=== PATIENT | female | born 1960 | race Caucasian/White ===

== ENCOUNTER → 2017-06-13 09:27 | Outpatient (CLI) | payer BC, SELFPAY ==
[2017-06-13 09:34] LABS: Bacteria 0 SEEN /hpf (None Seen); Mucous, Urine 0 SEEN /hpf (<or=2+); Squamous Epithelial Cells - UA 0 SEEN /hpf (5-10); White Blood Cells 0 SEEN /hpf (0-5)
[2017-06-13 11:42] LABS: AST(SGOT) 16 U/L (15-37); Alanine Aminotransfer ALT/SGPT 27 U/L (13-56); Albumin, Serum 3.6 g/dL (3.2-5.0); Alkaline Phosphatase 110 U/L (45-117); Anion Gap 7 (5-15); BUN 21 mg/dL (7-18); BUN/Creat Ratio 29.6 RATIO (10-20); Calcium,Total 9.4 mg/dL (8.5-10.1); Chloride 101 mmol/L (98-107); Cholesterol 285 mg/dL (200); Creatinine, Serum 0.71 mg/dL (0.55-1.02); EST Glomerular Filtration Rate 90 mL/min (>60); Est Glom Filt Rate - Afr Amer 109 mL/min (>60); Globulin 3.6 g/dL (2.2-4.2); Glucose 321 mg/dL (74-106); High Density Lipoprotein 72 mg/dL; Potassium 4.2 mmol/L (3.5-5.1); Protein, Total 7.2 g/dL (6.4-8.2); Sodium Level 135 mmol/L (136-145); Triglycerides 143 mg/dL; Very Low Density Lipoprotein 29 mg/dL (5-40)
[2017-06-13 11:48] LABS: Hemoglobin A1c 9.1 % (4.2-6.3)
[2017-06-13 12:22] LABS: Color, Urine Yellow (Yellow); Glucose, Dipstick 1000 mg/dl (Normal); Ketone-Dipstick 50 mg/dl (Negative); Leukocyte Esterase-Dipstick Negative /ul (Negative); Nitrite-Dipstick Negative (Negative); Occult Blood-Urine 250 /ul (Negative); Protein-Dipstick 15 mg/dl (Negative); Specific Gravity, Urine 1.015 (1.002-1.030); Urine Bilirubin Dipstick Negative (Negative); Urine Clarity Cloudy (Clear); Urine Urobilinogen Normal (Normal)
[2017-06-13 12:38] LABS: Red Blood Cells-Urine > 100 SEEN /hpf (0-5)
== END ==
PROVIDERS: Family Provider Family Medicine; PCP Family Medicine; Visit Provider Nurse Practitioner
DX: E10.65 Type 1 diabetes mellitus with hyperglycemia (principal); R31.9 Hematuria, unspecified
CPT/HCPCS: 36415; 80053; 80061; 81001; 83036

== ENCOUNTER → 2017-09-14 09:16 | Outpatient (CLI) | payer BC, SELFPAY ==
[2017-09-14 11:04] LABS: Hemoglobin A1c 9.1 % (4.2-6.3)
[2017-09-14 11:41] LABS: BUN 20 mg/dL (7-18); Creatinine, Serum 0.71 mg/dL (0.55-1.02); EST Glomerular Filtration Rate 90 mL/min (>60); Glucose 312 mg/dL (74-106)
[2017-09-14 11:42] LABS: AST(SGOT) 12 U/L (15-37); Alanine Aminotransfer ALT/SGPT 24 U/L (13-56); Albumin, Serum 3.5 g/dL (3.2-5.0); Alkaline Phosphatase 97 U/L (45-117); Anion Gap 8 (5-15); BUN/Creat Ratio 28.1 RATIO (10-20); Calcium,Total 8.8 mg/dL (8.5-10.1); Chloride 103 mmol/L (98-107); Cholesterol 298 mg/dL (200); Est Glom Filt Rate - Afr Amer 109 mL/min (>60); Globulin 3.4 g/dL (2.2-4.2); High Density Lipoprotein 58 mg/dL; Potassium 4.5 mmol/L (3.5-5.1); Protein, Total 6.9 g/dL (6.4-8.2); Sodium Level 139 mmol/L (136-145); Triglycerides 175 mg/dL; Very Low Density Lipoprotein 35 mg/dL (5-40)
== END ==
PROVIDERS: Family Provider Family Medicine; PCP Family Medicine; Visit Provider Nurse Practitioner
DX: E10.65 Type 1 diabetes mellitus with hyperglycemia (principal)
CPT/HCPCS: 36415; 80053; 80061; 83036

== ENCOUNTER → 2017-12-19 07:21 | Outpatient (CLI) | payer BC, SELFPAY ==
[2017-12-19 08:41] LABS: Microalbumin,Random Urine 13.1 mg/L (NO RANGE EST.)
[2017-12-19 08:45] LABS: Hemoglobin A1c 9.5 % (4.2-6.3)
[2017-12-19 09:17] LABS: ALB/GLOB Ratio 1.1 RATIO (0.9-2.4); AST(SGOT) 16 U/L (15-37); Alanine Aminotransfer ALT/SGPT 25 U/L (13-56); Albumin, Serum 3.5 g/dL (3.2-5.0); Alkaline Phosphatase 103 U/L (45-117); Anion Gap 9 (5-15); BUN 22 mg/dL (7-18); BUN/Creat Ratio 30.5 RATIO (10-20); Calcium,Total 8.9 mg/dL (8.5-10.1); Chloride 105 mmol/L (98-107); Creatinine, Serum 0.72 mg/dL (0.55-1.02); EST Glomerular Filtration Rate 88 mL/min (>60); Est Glom Filt Rate - Afr Amer 107 mL/min (>60); Globulin 3.3 g/dL (2.2-4.2); Glucose 308 mg/dL (74-106); Potassium 4.1 mmol/L (3.5-5.1); Protein, Total 6.8 g/dL (6.4-8.2); Sodium Level 138 mmol/L (136-145)
== END ==
PROVIDERS: Family Provider Family Medicine; PCP Family Medicine; Visit Provider Nurse Practitioner
DX: E11.9 Type 2 diabetes mellitus without complications (principal)
CPT/HCPCS: 36415; 80053; 82043; 82570; 83036; 87086

== ENCOUNTER → 2018-03-20 07:30 | Outpatient (CLI) | payer BC, SELFPAY ==
[2018-01-30 14:05] VITALS: BMI 31.4
[2018-03-20 08:43] LABS: Microalbumin,Random Urine 25.5 mg/L (NO RANGE EST.); Microalbumin:Creatinine Ratio 36.2 mg/g CRE (<30 mg/g CRE)
[2018-03-20 08:45] LABS: Hemoglobin A1c 9.6 % (4.2-6.3)
[2018-03-20 09:03] LABS: Vitamin D,25 Hydroxy 17.2 ng/mL (29.95-100.01)
[2018-03-20 09:11] LABS: ALB/GLOB Ratio 1.1 RATIO (0.9-2.4); AST(SGOT) 12 U/L (15-37); Alanine Aminotransfer ALT/SGPT 24 U/L (13-56); Albumin, Serum 3.7 g/dL (3.2-5.0); Alkaline Phosphatase 97 U/L (45-117); Anion Gap 7 (5-15); BUN 21 mg/dL (7-18); BUN/Creat Ratio 31.9 RATIO (10-20); Chloride 105 mmol/L (98-107); Cholesterol 277 mg/dL (200); Creatinine, Serum 0.66 mg/dL (0.55-1.02); EST Glomerular Filtration Rate 98 mL/min (>60); Est Glom Filt Rate - Afr Amer 119 mL/min (>60); Globulin 3.5 g/dL (2.2-4.2); Glucose 257 mg/dL (74-106); High Density Lipoprotein 65 mg/dL; Potassium 4.2 mmol/L (3.5-5.1); Protein, Total 7.2 g/dL (6.4-8.2); Sodium Level 138 mmol/L (136-145); Thyroid Stim Hormone (TSH) 2.88 uIU/mL (0.358-3.74); Triglycerides 166 mg/dL; Very Low Density Lipoprotein 33 mg/dL (5-40)
== END ==
PROVIDERS: Family Provider Family Medicine; PCP Family Medicine; Referring Provider Nurse Practitioner; Visit Provider Nurse Practitioner
DX: E10.65 Type 1 diabetes mellitus with hyperglycemia (principal)
CPT/HCPCS: 36415; 80053; 80061; 82043; 82306; 82570; 83036; 84443

== ENCOUNTER → 2018-06-14 08:52 | Outpatient (CLI) | payer BC, SELFPAY ==
[2018-03-27 08:45] VITALS: BMI 31.9
[2018-06-14 10:20] LABS: Hemoglobin A1c 7.2 % (4.2-6.3)
[2018-06-14 10:32] LABS: Microalbumin,Random Urine 24.3 mg/L (NO RANGE EST.); Microalbumin:Creatinine Ratio 47.2 mg/g CRE (<30 mg/g CRE)
[2018-06-14 10:41] LABS: ALB/GLOB Ratio 1.1 RATIO (0.9-2.4); AST(SGOT) 16 U/L (15-37); Alanine Aminotransfer ALT/SGPT 27 U/L (13-56); Albumin, Serum 3.7 g/dL (3.2-5.0); Alkaline Phosphatase 93 U/L (45-117); Anion Gap 6 (5-15); BUN 22 mg/dL (7-18); BUN/Creat Ratio 28.1 RATIO (10-20); Chloride 108 mmol/L (98-107); Creatinine, Serum 0.78 mg/dL (0.55-1.02); EST Glomerular Filtration Rate 80 mL/min (>60); Est Glom Filt Rate - Afr Amer 97 mL/min (>60); Globulin 3.5 g/dL (2.2-4.2); Glucose 225 mg/dL (74-106); Potassium 4.2 mmol/L (3.5-5.1); Protein, Total 7.2 g/dL (6.4-8.2); Sodium Level 142 mmol/L (136-145)
[2018-06-16 09:12] LABS: Vitamin D,25 Hydroxy 29.2 ng/mL (29.95-100.01)
== END ==
PROVIDERS: Family Provider Family Medicine; PCP Family Medicine; Referring Provider Nurse Practitioner; Visit Provider Nurse Practitioner
DX: E10.65 Type 1 diabetes mellitus with hyperglycemia (principal); E55.9 Vitamin D deficiency, unspecified; E78.2 Mixed hyperlipidemia
CPT/HCPCS: 36415; 80053; 82043; 82306; 82570; 83036

== ENCOUNTER → 2018-10-03 | Outpatient (CLI) | payer BC, SELFPAY ==
[2018-06-17 08:17] VITALS: BMI 34.3
[2018-10-03 10:46] LABS: Microalbumin,Random Urine 41.3 mg/L (NO RANGE EST.); Microalbumin:Creatinine Ratio 28.1 mg/g CRE (<30 mg/g CRE)
[2018-10-03 11:04] LABS: Vitamin D,25 Hydroxy 28.3 ng/mL (29.95-100.01)
== END | disposition home or self-care (01) ==
LOC: LAB 09:17
PROVIDERS: Family Provider Family Medicine; PCP Family Medicine; Referring Provider Nurse Practitioner; Visit Provider Nurse Practitioner
DX: E10.65 Type 1 diabetes mellitus with hyperglycemia (principal); E55.9 Vitamin D deficiency, unspecified
CPT/HCPCS: 36415; 82043; 82306; 82570

== ENCOUNTER 2020-09-11 19:29 | Emergency (ER) | payer OTHER, SELFPAY ==
[2020-06-29 09:11] VITALS: BMI 36.2
[2020-09-11 19:30] VITALS: BP 163/73; PULSE 86; RESP 16; TEMP 36.4; O2SAT 98; BMI 39.2
--- NOTE | 2020-09-11 19:43 | CT_ITS ---
STUDY: CT ABDOMEN AND PELVIS WITHOUT CONTRAST REASON FOR EXAM: Female, 60 years old. Abdominal pain kidney stone evaluation RADIATION DOSAGE (If Supplied By Facility): CTDIvol = ( 19.13 ) mGy, DLP = ( 927.09 ) mGycm TECHNIQUE: Transaxial images were obtained from the dome of the diaphragm to the symphysis pubis without oral contrast, and without intravenous contrast. Sagittal and coronal images were reconstructed. Individualized dose optimization techniques were used for this CT. COMPARISON: None. FINDINGS: The visualized lung bases are unremarkable. Coronary arteries are diseased.. Normal liver. Normal gallbladder and extrahepatic biliary system. Normal spleen. There is somewhat unusual appearance of the distal pancreatic body with posterior and medial protrusion, likely unusual angulation. There is no associated inflammation. Pancreatic duct is not dilated. Normal bilateral adrenal glands. There are bilateral 2 mm distal ureteral stones, within 1 cm of the ureterovesical junction without hydronephrosis. There are small bilateral 1 -- 2 mm calyceal nonobstructing calculi. There is a left exophytic 2.7 cm lesion with peripheral rim calcification, incompletely characterized. Perirenal space is normal. Normal visualized stomach. Normal small intestine. Normal colon. The appendix is visualized and appears normal. Normal abdominal aorta. Normal inferior vena cava. Normal retroperitoneum. Normal urinary bladder. Uterus is removed. Normal abdominal wall. There is bilateral lower abdominal cutaneous inflammation, likely due to subcutaneous therapeutic injections. Normal osseous structures. CT/Abdomen/Pelvis without Cont IMPRESSION: 1. Bilateral 2 mm distal ureteral calculi without hydronephrosis. 2. Left renal lesion, incompletely characterized, refer to more definitive renal imaging. 3. Unusual appearance of the pancreas, probably artifactual. This can be evaluated at the time of the above recommended renal imaging such as CT or MR. Electronically Signed: Kimberly Ha MD at 20:56 EDT Tel , Service support ,
[2020-09-11 19:53] LABS: Absolute Lymphocyte Count 2.84 X10^3/uL (0.83-4.51); Absolute Neutrophil Count 8.2 X10^3/uL (2.0-7.7); Basophil# 0.11 X10^3/uL; Basophil% 0.9 % (0-1); Eosinophil# 0.23 X10^3/uL; Eosinophils% 1.8 % (0-5); Hematocrit 48.5 % (37-47); Hemoglobin 16.3 g/dL (12.0-15.0); Lymphocyte # 2.84 X10^3/ul (0.83-4.51); Lymphocyte % 22.3 % (19-41); Mean Corp Hgb Conc 33.6 g/dL (32-36); Mean Corpuscular Hgb 30.5 pg (27.0-32.0); Mean Corpuscular Volume 90.8 fL (81-99); Mean Platelet Vol. 10.3 fl (6.2-12.0); Monocyte% 10.2 % (0-10); NRBC Flagged by Analyzer 0 % (0-5); Neutrophil # 8.19 X10^3/uL (2.7-7.7); Neutrophil % 64.5 % (47-70); Platelet Count 255 K/mm3 (150-450); RBC Distribution Width CV 13.3 % (11.6-14.6); RBC Distribution Width SD 44.8 fl (35.1-43.9); Red Blood Count 5.34 M/mm3 (4.2-5.4); White Blood Count 12.7 K/mm3 (4.4-11.0)
[2020-09-11] MEDS: Ondansetron 4 MG/2 ML Vial IV (19:54)
[2020-09-11] MEDS: Ketorolac 15 MG/ML Vial IV (19:54)
[2020-09-11 20:05] LABS: Bacteria 0 SEEN /hpf (None Seen); Color, Urine Straw (Yellow); Glucose, Dipstick 250 mg/dl (Normal); Ketone-Dipstick 5 mg/dl (Negative); Leukocyte Esterase-Dipstick 25 /ul (Negative); Mucous, Urine 0 SEEN /hpf (<or=2+); Nitrite-Dipstick Negative (Negative); Occult Blood-Urine 25 /ul (Negative); Protein-Dipstick 15 mg/dl (Negative); Red Blood Cells-Urine 0 SEEN /hpf (0-5); Urine Bilirubin Dipstick Negative (Negative); Urine Clarity Clear (Clear); Urine Urobilinogen Normal (Normal)
[2020-09-11 20:07] LABS: Anion Gap 7 (5-15); BUN 20 mg/dL (7-18); BUN/Creat Ratio 25.2 RATIO (10-20); Calcium,Total 10.4 mg/dL (8.5-10.1); Chloride 104 mmol/L (98-107); EST Glomerular Filtration Rate 78 mL/min (>60); Est Glom Filt Rate - Afr Amer 95 mL/min (>60); Estimated Creatinine Clearance 61.86 ml/min; Glucose 172 mg/dL (74-106); Potassium 3.9 mmol/L (3.5-5.1); Sodium Level 138 mmol/L (136-145)
[2020-09-11 20:15] LABS: Squamous Epithelial Cells - UA 0-5 SEEN /hpf (5-10); White Blood Cells 0-5 SEEN /hpf (0-5)
--- NOTE | 2020-09-11 20:32 | EDS_ITS ---
HPI HPI - GI History of Present Illness Chief Complaint: Flank Pain Narrative Narrative: Patient presenting for evaluation due to concern for flank pain and a kidney stone. Patient states that she does have a history of kidney stones in the past. The current pain that she is having seems characteristic with that. Patient states that she has been dealing with urinary tract infections recently, she was started on a course of Bactrim earlier this week. She stated that on Saturday she developed left-sided flank pain that was waxing and waning and consistent with a kidney stone. Patient states that she has been having some urinary hesitancy today. She is also been having some nausea with difficulty keeping down fluids. She has had a minimal amount of vomiting. No fevers associated with this. Patient does state that when she had this in the distant past it did require lithotripsy but that was more so because she is not able to tolerate oral pain medications. Review of systems otherwise negative. [facility] Medical History (Updated 09/11/20 @ 21:[address] Blu Johnson MD) Diabetes type 1, controlled H/O urinary tract infection H/O: pneumonia HTN (hypertension) Hx of nephrolithotomy with removal of calculi Hyperlipidemia Kidney stones manual manipulation of R shoulder Obesity Osteopenia Vision problems Home Medications blood-glucose meter #1 ea 03/05/17 [History Last Taken Unknown] lancets 33 gauge #100 ea 03/05/17 [History Last Taken Unknown] multivitamin 1 tab PO QAM 03/05/17 [History Last Taken Unknown] flash glucose scanning reader #1 ea 02/02/18 [Rx Last Taken Unknown] rosuvastatin 10 mg tablet 10 mg PO QHS #30 tab 03/27/18 [Rx Last Taken Unknown] ascorbic acid (vitamin C) 500 mg capsule mg PO cap 06/17/18 [History Last Taken Unknown] alprazolam 0.25 mg tablet 0.25 mg PO DAILY PRN 08/17/19 [History Last Taken Unknown] carvedilol 12.5 mg tablet 12.5 mg PO BID 08/17/19 [History Last Taken Unknown] cholecalciferol (vitamin D3) 125 mcg (5,000 unit) capsule 125 mcg PO DAILY 08/17/19 [History Last Taken Unknown] hydrochlorothiazide 12.5 mg capsule 12.5 mg PO DAILY 08/17/19 [History Last Taken Unknown] naproxen sodium 220 mg capsule 440 mg PO DAILY cap 08/17/19 [History Last Taken Unknown] flash glucose sensor #2 ea 11/19/19 [Rx Last Taken Unknown] pen needle, diabetic 31 gauge x 08/14 #150 ea 11/26/19 [Rx Last Taken Unknown] Lantus U-100 Insulin 100 unit/mL subcutaneous solution See Rx Instructions SC BID #20 ml NS 03/29/20 [Rx Last Taken Unknown] Humalog KwikPen Insulin 100 unit/mL subcutaneous See Rx Instructions SC .COMPLEX #54 ml NS MDD 175 06/29/20 [Rx Last Taken Unknown] carvedilol 6.25 mg tablet 6.25 mg PO BID tablet 06/29/20 [History Last Taken Unknown] blood sugar diagnostic #100 ea 08/03/20 [Rx Last Taken Unknown] ketorolac 10 mg PO TID 5 Days #15 tab 09/11/20 [Rx Last Taken Unknown] tamsulosin [Flomax] 0.4 mg PO DAILY #5 cap 09/11/20 [Rx Last Taken Unknown] Allergy/AdvReac Type Severity Reaction Status Date / Time dulaglutide [From [facility]] Allergy Severe Unknown Verified 09/11/20 19:32 morphine Allergy Hives Verified 09/11/20 19:32 Opioids - Morphine Analogues Allergy Rash Verified 09/11/20 19:32 codeine AdvReac Nausea/Vom/ Verified 09/11/20 19:32 Diarrhea Family History Father Heart disease Alcoholism Grandfather Diabetes Myocardial infarction Heart disease Parkinsons disease Grandmother Parkinsons disease Mother Heart disease blood clots Surgical History History of incision and drainage History of total abdominal hysterectomy Hx of cataract surgery Social History (Updated 06/30/20 @ 10:[address] Yaya Wilson MD) Smoking Status: Current every day smoker tobacco type: cigarettes Tobacco: How many years used: 44 second hand exposure: Yes alcohol intake: never substance use type: does not use ROS ROS ED Constitutional Constitutional ED: Denies chills or fever(s) ENT ENT ED: Denies sore throat Cardiovascular Cardiovascular: Denies chest pain Respiratory/Chest Respiratory/Chest: Denies cough or dyspnea Gastrointestinal Gastrointestinal: Reports nausea and vomiting; Denies abdominal pain, constipation or diarrhea Genitourinary Genitourinary ED: Reports other Details: hesitency Flank pain ; Denies dysuria, hematuria or urinary frequency Musculoskeletal Musculoskeletal: Denies myalgias Integumentary Denies rash Neurologic Neurologic: Denies paresthesias or weakness Psychiatric Psychiatric: Denies depression Endocrine Endocrinology: Denies polyuria Hematologic/Lymphatic Hematologic/Lymphatic: Denies easy bleeding or easy bruising Allergic/Immunologic Allergic/Immunologic ED: Denies urticaria EXAM Physical Exam Const Vital Signs: 09/11/20 19:30 Temperature 97.6 F L Temperature Source Temporal Pulse Rate 86 Respiratory Rate 16 Blood Pressure 163/73 H Blood Pressure Mean 103 Pulse Ox 98 Oxygen Delivery Method Room Air Positive well nourished, well developed and obese General Appearance ED: well developed and NAD Nutritional Appearance: obese HEENT Reports dry mucous membranes normocephalic and atraumatic Mouth ED: Yes dry mucous membranes Mouth: dry mucous membranes Eyes EOMs intact bilaterally General Eye ED: Negative for pale conjunctiva or scleral icterus Neck no lymphadenopathy and supple Resp normal respiratory effort and clear to auscultation bilaterally Cardio regular rate, regular rhythm, no murmurs and peripheral pulses 2+ throughout GI non-distended and no masses Palpation: soft and tender LLQ; Negative for guarding, rigid or rebound tenderness present Back/Spine no CVA tenderness Extremity full ROM General Extremety ED: Negative for edema General Extremity: Negative for edema Neuro moves all extremities and no sensory deficits noted Sensorium / Orientation: alert, oriented to person, oriented to place and oriented to time Motor Exam: strength 5/5 throughout Psych mental status grossly normal Skin Rashes: no rashes MDM MDM MDM Narrative Medical decision making narrative: Patient presented with flank pain and concern for kidney stones. IV was established laboratory studies were obtained. Patient has a modest leukocytosis of 12.7. Chemistry panel is normal, patient has no elevation of her BUN or creatinine has normal electrolytes. Urinalysis demonstrates no evidence of infection, no significant evidence of hematuria. CT abdomen and pelvis was performed on the patient and actually shows bilateral nonobstructing stones at the bilateral UVJ's with no evidence of hydronephrosis and measuring 2 mm. Given the patient's normal renal function I did administer the patient some Toradol and she had significant symptomatic improvement and is resting comfortably. At this time the patient does have bilateral stones but they do not appear to be obstructive as there is no hydronephrosis, she has normal renal function and no evidence of pyuria. Patient has told me that in the past she has had issues with tolerating oral pain medications and requires admission, but there is currently no urology coverage. Given her normal renal function numbers and the fact that she is not infectious and the fact that the stones are nonobstructive I think that she potentially could be initially tried on a outpatient treatment regimen with a protracted course of ketorolac and early follow-up with urology. I educated the patient on signs and symptoms which to return, she voiced understanding of this. Patient was discharged in improved condition. Lab Data Labs: Laboratory Results - last 24 hr 09/11/20 09/11/20 09/11/20 19:45 19:45 19:50 WBC 12.7 H RBC 5.34 Hgb 16.3 H Hct 48.5 H MCV 90.8 MCH 30.5 MCHC 33.6 RDW Std Deviation 44.8 H RDW Coeff of Mark 13.3 Plt Count 255 MPV 10.3 Immature Gran % (Auto) 0.300 Neut % (Auto) 64.5 Lymph % (Auto) 22.3 [place] % (Auto) 10.2 H Eos % (Auto) 1.8 Baso % (Auto) 0.9 Absolute Neuts (auto) 8.2 H Absolute Lymphs (auto) 2.84 Nucleated RBC % 0 Sodium 138 Potassium 3.9 Chloride 104 Carbon Dioxide 27.0 Anion Gap 7 BUN 20 H Creatinine 0.80 Estim Creat Clear Calc 61.86 Est GFR (MDRD) Af Amer 95 Est GFR (MDRD) Non-Af 78 BUN/Creatinine Ratio 25.2 H Glucose 172 H Calcium 10.4 H Urine Color Straw Urine Clarity Clear Urine pH 6.0 Ur Specific [place] 1.020 Urine Protein 15 H Urine Glucose (UA) 250 H Urine Ketones 5 H Urine Occult Blood 25 H Urine Nitrite Negative Urine Bilirubin Negative Urine Urobilinogen Normal Ur Leukocyte Esterase 25 H Urine RBC 0 SEEN Urine WBC 0-5 SEEN Ur Squamous Epith Cells 0-5 SEEN Urine Bacteria 0 SEEN Urine Mucus 0 SEEN Radiography Diagnostic Testing: Radiology Impression Abdomen/Pelvis CT 09/11/20 19:43 IMPRESSION: 1. Bilateral 2 mm distal ureteral calculi without hydronephrosis. 2. Left renal lesion, incompletely characterized, refer to more definitive renal imaging. 3. Unusual appearance of the pancreas, probably artifactual. This can be evaluated at the time of the above recommended renal imaging such as CT or MR. Electronically Signed: Kimberly Ha MD at 20:56 EDT Tel , Service support , Discharge Plan Triage Chief Complaint: Flank Pain ED Provider: Blu Johnson Dx/Rx/DC Orders Clinical Impression: Urolithiasis Instructions: ED Kidney Stone w/ Colic Prescriptions: New ketorolac 10 mg tablet 10 mg PO TID 5 Days Qty: 15 RF: 0 tamsulosin [Flomax] 0.4 mg capsule 0.4 mg PO DAILY Qty: 5 RF: 0 No Action multivitamin tablet 1 tab PO QAM RF: 0 (DME) blood-glucose meter misc See Dose Instructions .ROUTE .MEDSUPPLY Qty: 1 RF: 0 (DME) lancets [OneTouch Delica Lancets] 33 gauge misc See Dose Instructions .ROUTE .MEDSUPPLY Qty: 100 RF: 0 rosuvastatin 10 mg tablet 10 mg PO QHS Qty: 30 RF: 11 (DME) FreeStyle [place] 14 Day [place] misc See Dose Instructions .ROUTE .MEDSUPPLY Qty: 1 RF: 0 ascorbic acid (vitamin C) 500 mg capsule PO RF: 0 carvedilol 12.5 mg tablet 12.5 mg PO BID RF: 0 cholecalciferol (vitamin D3) 125 mcg (5,000 unit) capsule 125 mcg PO DAILY RF: 0 naproxen sodium [Aleve] 220 mg capsule 440 mg PO DAILY RF: 0 alprazolam 0.25 mg tablet 0.25 mg PO DAILY PRNRF: 0 hydrochlorothiazide 12.5 mg capsule 12.5 mg PO DAILY RF: 0 (DME) FreeStyle [place] 14 Day Sensor Kit See Dose Instructions .ROUTE .MEDSUPPLY Qty: 2 RF: 11 carvedilol 6.25 mg tablet 6.25 mg PO BID RF: 0 Humalog KwikPen Insulin 100 unit/mL insulin pen See Rx Instructions SC .COMPLEX MDD 175 Qty: 54 RF: 1 (DME) pen needle, diabetic [BD Ultra-Fine Short Pen Needle] 31 gauge x 5/16 needle See Dose Instructions .ROUTE .MEDSUPPLY Qty: 150 RF: 11 Lantus U-100 Insulin 100 unit/mL solution See Rx Instructions SC BID Qty: 20 RF: 4 (DME) OneTouch Ultra Test Strip See Dose Instructions .ROUTE .MEDSUPPLY Qty: 100 RF: 11 Primary Care Provider: Fredrick Mcintyre Referrals: Lavon Osborne MD [STAFF PHYSICIAN] - As soon as possible Fredrick Mcintyre MD [Primary Care Provider] - Disposition Disposition: Home, self care
[2020-09-11 21:40] VITALS: BP 134/63; PULSE 83; RESP 16; O2SAT 94
== END 2020-09-11 21:40 | disposition home or self-care (01) ==
PROVIDERS: Emergency Provider Emergency Medicine; PCP Family Medicine
DX: N20.1 Calculus of ureter (principal); E10.9 Type 1 diabetes mellitus without complications; I10 Essential (primary) hypertension; E78.5 Hyperlipidemia, unspecified; E66.9 Obesity, unspecified; M85.80 Other specified disorders of bone density and structure, unspecified site; F17.210 Nicotine dependence, cigarettes, uncomplicated; Z79.4 Long term (current) use of insulin; Z79.1 Long term (current) use of non-steroidal anti-inflammatories (NSAID); Z79.899 Other long term (current) drug therapy; Z87.442 Personal history of urinary calculi; Z87.440 Personal history of urinary (tract) infections
CPT/HCPCS: 74176; 80048; 81001; 85025; 96374; 96375; 99283; A4216; J2405

== ENCOUNTER → 2022-07-18 | Outpatient (CLI) | payer OTHER, SELFPAY ==
--- NOTE | 2022-07-18 10:00 | COLBX_PTH ---
PATIENT: ELIZABET BREWER [facility]: [facility] U#:[id number] AGE/SX: 62/F ROOM: RE07/18/[address]: Dr. Nhi Friedman MD : 1960 BED: DIS: 07/18/2022 SPEC #: [id number] RECD: 07/18/22 15:19 STATUS: JEREMIAS REQ #: [id number] TK: 07/18/22 10:[address]: Nhi Friedman DEPT: SURGICAL PATHOLOGY RECD BY: Kelley Em ENTERED: 07/19/22 08:57 SP TYPE: COLON BX OTHR DR: Dr. Fredrick Mcintyre MD Tissues: Cecum, NOS Procedures: Surgery Specimen Level IV HEADER OPERATION: Colonoscopy PRE-OP DIAGNOSIS: History of polyps TISSUE SUBMITTED: Cecal polyp MICROSCOPIC DIAGNOSIS Cecal polyp, biopsy: Hyperplastic polyp. ANGELINA:nj 07/20/2022 MICROSCOPIC DESCRIPTION Slides are reviewed. GROSS DESCRIPTION Received in fixative is one container labeled with the patient's name and designated cecal polyp. The specimen consists of one irregular fragment of light thompson soft tissue that measures 0.5 x 0.5 x 0.1 cm. The specimen is totally submitted in one cassette. / AM:nj 07/19/2022 TC:1 CPT: 62866
== END | disposition home or self-care (01) ==
LOC: LABSPEC 15:46
PROVIDERS: PCP Family Medicine; Visit Provider Surgery
DX: K63.5 Polyp of colon (principal)
CPT/HCPCS: 88305